=== PATIENT | male | born 1995 | race Caucasian/White ===

== ENCOUNTER 2021-11-03 23:48 | Emergency (ER) | payer OTHER ==
[~2021-11-03] VITALS: Ht 193 cm; Wt 77.1 kg
[2021-11-04] MEDS ORDERED: CYCL10 PO (00:38)
[2021-11-04] MEDS ORDERED: LIDO700A20 TOP (00:38)
[2021-11-04] MEDS ORDERED: IBUP600 PO (00:38)
[2021-11-04] MEDS ORDERED: ACET500 PO (00:38)
== END 2021-11-04 00:56 | disposition home or self-care (01) ==
LOC: ER 23:48
DX: M54.50 Low back pain, unspecified (principal); M54.6 Pain in thoracic spine; F17.200 Nicotine dependence, unspecified, uncomplicated
CPT/HCPCS: 96372; 99283; A9270; J1885

== ENCOUNTER 2021-11-08 14:32 | Emergency (ER) | payer OTHER ==
[~2021-11-08] VITALS: Ht 193 cm; Wt 77.1 kg
[~2021-11-08 14:32] MED LIST: ACET500 PO; CYCL10 PO; IBUP600 PO; LIDO700A20 TOP
[2021-11-08] MEDS ORDERED: CYCL10 PO (15:53)
[2021-11-08] MEDS ORDERED: IBUP400 PO (15:53)
== END 2021-11-08 16:29 | disposition home or self-care (01) ==
LOC: ER 14:32
DX: M54.50 Low back pain, unspecified (principal); G89.29 Other chronic pain
CPT/HCPCS: 72100; 96374; 99284-25; J1885

== ENCOUNTER 2022-04-07 11:09 | Emergency (ER) | payer OTHER ==
[~2022-04-07] VITALS: Ht 188 cm; Wt 77.1 kg
[~2022-04-07 11:09] MED LIST changes: +IBUP400 PO
[2022-04-07 11:41] LABS: BASOPHILS PERCENT AUTO 1 % (0-2); EOSINOPHILS ABSOLUTE AUTO 0.06 K/mm3 (0.00-0.68); EOSINOPHILS PERCENT AUTO 1 % (0-6); Hematocrit 44.3 % (37.0-53.0); Hemoglobin 15.7 g/dL (13.5-17.5); IMMATURE GRAN ABSOLUTE AUTO 0.02 K/mm3 (0.00-0.10); IMMATURE GRAN PERCENT AUTO 0 % (0-1); LYMPHOCYTES ABSOLUTE AUTO 1.82 K/mm3 (0.84-5.20); LYMPHOCYTES PERCENT AUTO 23 % (21-46); MONOCYTES ABSOLUTE AUTO 0.56 K/mm3 (0.16-1.47); MONOCYTES PERCENT AUTO 7 % (4-13); Mean Corpuscular HGB 33.8 pg (26.0-34.0); Mean Corpuscular HGB Conc 35.4 g/dL (31.5-36.5); Mean Corpuscular Volume 96 fL (80-100); Mean Platelet Volume 9.4 fL (9.1-12.4); NEUTROPHILS ABSOLUTE AUTO 5.28 K/mm3 (1.96-9.15); NEUTROPHILS PERCENT AUTO 67 % (41-73); Platelet Count 361 K/mm3 (150-400); RDW Coefficient Variation 12.7 % (11.7-14.2); RDW Standard Deviation 45.1 fL (35.1-46.3); Red Blood Cell Count 4.64 M/mm3 (4.30-5.90); White Blood Cell Count 7.84 K/mm3 (4.00-11.30)
[2022-04-07 12:01] LABS: Albumin, Blood 3.5 g/dL (3.4-5.0); Albumin/Globulin Ratio 0.9 (0.8-1.8); Bilirubin, Total 0.8 mg/dL (0.1-1.0); Bun/Creatinine Ratio 12.8 (12.0-20.0); Calcium, Blood 9.4 mg/dL (8.5-10.1); Creatinine, Blood 0.7 mg/dL (0.60-1.20); Globulin, Blood 3.8 g/dL (2.2-4.0); Potassium, Blood 3.6 mmol/L (3.5-5.5); Total Protein, Blood 7.3 g/dL (6.4-8.2)
[2022-04-07] MEDS ORDERED: OMEP20ER PO (13:45)
[2022-04-07] MEDS ORDERED: CHLO25 PO (13:45)
[2022-04-07] MEDS ORDERED: PROM25 PO (13:45)
== END 2022-04-07 13:57 | disposition home or self-care (01) ==
LOC: ER 11:09
PROVIDERS: Physician Assistant
DX: K29.20 Alcoholic gastritis without bleeding (principal); F10.10 Alcohol abuse, uncomplicated; F17.200 Nicotine dependence, unspecified, uncomplicated; Z88.5 Allergy status to narcotic agent; Z79.899 Other long term (current) drug therapy
CPT/HCPCS: 36415; 80053; 83690; 83735; 85025; 96374; 96375; 99284-25; A9270; C9113; J2060; J2405; J2550; J7030

== ENCOUNTER 2022-10-04 15:20 | Emergency (ER) | payer OTHER ==
[~2022-10-04] VITALS: Ht 193 cm; Wt 72.6 kg
[~2022-10-04 15:20] MED LIST changes: +CEPH500 PO; +CHLO25 PO; +OMEP20ER PO; +ONDA4ODT MM; +PROM25 PO
[2022-10-04 15:47] LABS: BASOPHILS ABSOLUTE AUTO 0.11 K/mm3 (0.00-0.23); BASOPHILS PERCENT AUTO 1 % (0-2); EOSINOPHILS PERCENT AUTO 0 % (0-6); Hematocrit 40.3 % (37.0-53.0); Hemoglobin 14.3 g/dL (13.5-17.5); IMMATURE GRAN ABSOLUTE AUTO 0.06 K/mm3 (0.00-0.10); IMMATURE GRAN PERCENT AUTO 0 % (0-1); LYMPHOCYTES ABSOLUTE AUTO 0.74 K/mm3 (0.84-5.20); LYMPHOCYTES PERCENT AUTO 4 % (21-46); MONOCYTES ABSOLUTE AUTO 0.57 K/mm3 (0.16-1.47); MONOCYTES PERCENT AUTO 3 % (4-13); Mean Corpuscular HGB 34.5 pg (26.0-34.0); Mean Corpuscular HGB Conc 35.5 g/dL (31.5-36.5); Mean Corpuscular Volume 97 fL (80-100); Mean Platelet Volume 10.1 fL (9.1-12.4); NEUTROPHILS ABSOLUTE AUTO 15.21 K/mm3 (1.96-9.15); NEUTROPHILS PERCENT AUTO 91 % (41-73); Platelet Count 433 K/mm3 (150-400); RDW Coefficient Variation 12.2 % (11.7-14.2); RDW Standard Deviation 44.2 fL (35.1-46.3); Red Blood Cell Count 4.15 M/mm3 (4.30-5.90); White Blood Cell Count 16.69 K/mm3 (4.00-11.30)
[2022-10-04] MEDS ORDERED: ONDA4ODT MM (15:49)
[2022-10-04] MEDS ORDERED: OMEP20ER PO (15:49)
[2022-10-04] MEDS ORDERED: Chlordiazepoxid25 MG PO (15:49)
[2022-10-04 16:11] LABS: Albumin, Blood 3.3 g/dL (3.4-5.0); Albumin/Globulin Ratio 0.9 (0.8-1.8); Bun/Creatinine Ratio 7.8 (12.0-20.0); Calcium, Blood 9.1 mg/dL (8.5-10.1); Creatinine, Blood 0.64 mg/dL (0.60-1.20); Globulin, Blood 3.5 g/dL (2.2-4.0); Potassium, Blood 3.9 mmol/L (3.5-5.5); Total Protein, Blood 6.8 g/dL (6.4-8.2)
[2022-10-04] MEDS ORDERED: CHLO25 PO (18:15)
== END 2022-10-04 19:01 | disposition home or self-care (01) ==
LOC: ER 15:20
PROVIDERS: Emergency Medicine
DX: F10.239 Alcohol dependence with withdrawal, unspecified (principal); F17.210 Nicotine dependence, cigarettes, uncomplicated; Z88.5 Allergy status to narcotic agent; Z79.899 Other long term (current) drug therapy
CPT/HCPCS: 80053; 85025; 93005; 93010; A9270; G0480; J2405; J7030

== ENCOUNTER 2022-11-19 16:30 | Emergency (ER) | payer OTHER ==
[~2022-11-19] VITALS: Ht 193 cm; Wt 81.7 kg
[~2022-11-19 16:30] MED LIST changes: +Chlordiazepoxid25 MG PO
[2022-11-19] MEDS ORDERED: Amoxicillin500 MG PO (16:40)
[2022-11-19] MEDS ORDERED: Norco 5-325 Ta1 EACH PO (16:41)
== END 2022-11-19 16:44 | disposition home or self-care (01) ==
LOC: ER 16:30
DX: K04.7 Periapical abscess without sinus (principal); F17.210 Nicotine dependence, cigarettes, uncomplicated; Z88.5 Allergy status to narcotic agent; Z79.899 Other long term (current) drug therapy
CPT/HCPCS: 99282

== ENCOUNTER 2023-03-17 11:30 | Emergency (ER) | payer OTHER ==
[~2023-03-17] VITALS: Ht 193 cm; Wt 90.7 kg
[~2023-03-17 11:30] MED LIST changes: +Amoxicillin500 MG PO; +Norco 5-325 Ta1 EACH PO
[2023-03-17 11:58] VITALS: BP 116/83
== END 2023-03-17 13:25 | disposition home or self-care (01) ==
LOC: ER 11:30
DX: Z77.098 Contact with and (suspected) exposure to other hazardous, chiefly nonmedicinal, chemicals (principal); Z88.5 Allergy status to narcotic agent; Z79.899 Other long term (current) drug therapy; F17.210 Nicotine dependence, cigarettes, uncomplicated
CPT/HCPCS: 99283; A9270

== ENCOUNTER 2023-08-01 14:25 | Inpatient (IN) | payer OTHER ==
[~2023-08-01] VITALS: Ht 193 cm; Wt 73.5 kg
[2023-08-01 15:20] LABS: BASOPHILS PERCENT AUTO 1 % (0-2); EOSINOPHILS ABSOLUTE AUTO 0.01 K/mm3 (0.00-0.68); EOSINOPHILS PERCENT AUTO 0 % (0-6); Hematocrit 42.9 % (37.0-53.0); Hemoglobin 15.7 g/dL (13.5-17.5); IMMATURE GRAN ABSOLUTE AUTO 0.04 K/mm3 (0.00-0.10); IMMATURE GRAN PERCENT AUTO 0 % (0-1); LYMPHOCYTES ABSOLUTE AUTO 1.29 K/mm3 (0.84-5.20); LYMPHOCYTES PERCENT AUTO 9 % (21-46); MONOCYTES ABSOLUTE AUTO 0.82 K/mm3 (0.16-1.47); MONOCYTES PERCENT AUTO 6 % (4-13); Mean Corpuscular HGB 33.5 pg (26.0-34.0); Mean Corpuscular HGB Conc 36.6 g/dL (31.5-36.5); Mean Corpuscular Volume 92 fL (80-100); NEUTROPHILS PERCENT AUTO 84 % (41-73); Platelet Count 245 K/mm3 (150-400); RDW Coefficient Variation 12.7 % (11.7-14.2); RDW Standard Deviation 42.5 fL (35.1-46.3); Red Blood Cell Count 4.68 M/mm3 (4.30-5.90); White Blood Cell Count 13.96 K/mm3 (4.00-11.30)
[2023-08-01 15:40] LABS: Albumin, Blood 4.4 g/dL (3.4-5.0); Albumin/Globulin Ratio 1.2 (0.8-1.8); Bilirubin, Total 1.2 mg/dL (0.1-1.0); Bun/Creatinine Ratio 7.8 (12.0-20.0); Calcium, Blood 10.1 mg/dL (8.5-10.1); Creatinine, Blood 0.64 mg/dL (0.60-1.20); Globulin, Blood 3.7 g/dL (2.2-4.0); Potassium, Blood 3.2 mmol/L (3.5-5.5); Total Protein, Blood 8.1 g/dL (6.4-8.2)
[2023-08-01 20:21] VITALS: BP 151/109
[2023-08-02 02:39] VITALS: BP 152/107
--- NOTE | 2023-08-02 04:39 | NUR ---
SHIFT SUMMARY PATIENT IS ALERT AND ORIENTED. PATIENT HAS HAD NO ACUTE EVENTS THIS SHIFT. PATIENT IS ADMITTED FOR ETOH WITHDRAWAL. CIWAS HAVE BEEN UNDER 8 AND MEDICATED PER EMAR. PATIENT IS A 1X PERSON ASSIST DUE TO SHAKINESS AND WITHDRAWALS. PATIENT HAS INDICATED NO COMPLAINTS OF PAIN, NAUSEA, SOB OR VOMITTING THIS SHIFT. MOTHER HAS STAYED OVERNIGHT WITH PATIENT. BED IN LOCKED AND LOWEST POSITION. CALL LIGHT IN PLACE. WILL MONITOR UNTIL SHIFT CHANGE.
[2023-08-02 05:10] LABS: BASOPHILS ABSOLUTE AUTO 0.05 K/mm3 (0.00-0.23); BASOPHILS PERCENT AUTO 1 % (0-2); EOSINOPHILS ABSOLUTE AUTO 0.01 K/mm3 (0.00-0.68); EOSINOPHILS PERCENT AUTO 0 % (0-6); Hematocrit 37.7 % (37.0-53.0); Hemoglobin 13.3 g/dL (13.5-17.5); IMMATURE GRAN ABSOLUTE AUTO 0.01 K/mm3 (0.00-0.10); IMMATURE GRAN PERCENT AUTO 0 % (0-1); LYMPHOCYTES ABSOLUTE AUTO 1.32 K/mm3 (0.84-5.20); LYMPHOCYTES PERCENT AUTO 22 % (21-46); MONOCYTES ABSOLUTE AUTO 0.59 K/mm3 (0.16-1.47); MONOCYTES PERCENT AUTO 10 % (4-13); Mean Corpuscular HGB 33.7 pg (26.0-34.0); Mean Corpuscular HGB Conc 35.3 g/dL (31.5-36.5); Mean Corpuscular Volume 95 fL (80-100); Mean Platelet Volume 10.6 fL (9.1-12.4); NEUTROPHILS ABSOLUTE AUTO 4.15 K/mm3 (1.96-9.15); NEUTROPHILS PERCENT AUTO 68 % (41-73); Platelet Count 179 K/mm3 (150-400); RDW Coefficient Variation 12.5 % (11.7-14.2); RDW Standard Deviation 43.7 fL (35.1-46.3); Red Blood Cell Count 3.95 M/mm3 (4.30-5.90); White Blood Cell Count 6.13 K/mm3 (4.00-11.30)
[2023-08-02 05:35] LABS: Bun/Creatinine Ratio 7.1 (12.0-20.0); Calcium, Blood 8.4 mg/dL (8.5-10.1); Creatinine, Blood 0.71 mg/dL (0.60-1.20); Magnesium, Blood 1.2 mg/dL (1.6-2.4); Potassium, Blood 3.2 mmol/L (3.5-5.5)
[2023-08-02 07:37] VITALS: BP 145/102
[2023-08-02 16:04] VITALS: BP 148/106
--- NOTE | 2023-08-02 18:40 | NUR ---
SHIFT SUMMARY- PT IS A/O, PLESANT AND COOPERATIVE. HE IS EATING AND DRINKING WELL. HIS MOM AND S/O HAVE BEEN AT THE BEDSIDE THIS SHIFT. WITHDRAWLS ARE STABLE. RECIEVED ONE DOSE OF ATIVAN. PT IS ANXIOUS ABOUT WANTING TO GO SMOKE. EDUCATED ON HOSPITAL POLICY. HE IS AMBULATING TO THE RESTROOM. HIS BED IS IN THE LOW POSITON AND CALL LIGHT IS WITIN REACH.
[2023-08-02 19:25] VITALS: BP 146/102
--- NOTE | 2023-08-03 03:52 | NUR ---
AMA SUMMARY PATIENT IS ALERT AND ORIENTED. PATIENT HAS BEEN WITHDRAWING FROM ETOH. PATIENT SCORED A 13 ON CIWA. PATIENT WOKE UP FROM SLEEPING AND HALLUCINATING. PATIENT WAS GIVEN ATIVAN AND LIBRIUM. NEW IV WAS ATTEMPTED MULTIPLE TIMES. PATIENT BECAME IRRITATED WITH IV INSERTION. PATIENT LEFT AMA. DR HODGE WAS NOTIFIED. CHARGE IS AWARE. PATIENTS FAMILY IS AWARE.
--- NOTE | 2023-08-03 03:55 | NUR ---
ATTEMPTED TO START NEW IV WITH US X 2, UNSUCESSFUL. PT WAS VERY POLITE BUT APPEARED VERY ANXIOUS VS OR COMBINED WITH WITHDRAWALS, BUT REFUSED ANY FURTHER ATTEMPTS. PT'S PRIMARY RN EXPLAINED WHAT THE PLAN OF CARE WAS FOR HIS WITHDRAWALS AND THE NEED FOR THE IV,HOWEVER PT POLITELY DECLINED AND WANTED TO GO HOME. PRIMARY RN EDUCATED PT OF THE RISKS OF LEAVING WITHOUT THE PROPER TREATMENT. PT STILL WANTED TO LEAVE. PRIMARY RN LET THE DR KNOW. WILL LET THE SUSPECT ARTIST SUPERVISOR KNOW.
== END 2023-08-03 03:50 | disposition left against medical advice (07) | DRG 894 ==
LOC: ER 14:25 → MEDS 18:28
PROVIDERS: Physician Assistant; ADMIT Hospitalist
PROC: HZ2ZZZZ Detoxification Services for Substance Abuse Treatment (ICD-10-PCS; principal; 2023-08-02)
DX: F10.239 Alcohol dependence with withdrawal, unspecified (principal); R00.0 Tachycardia, unspecified; F10.229 Alcohol dependence with intoxication, unspecified; D72.829 Elevated white blood cell count, unspecified; E87.6 Hypokalemia; R74.01 Elevation of levels of liver transaminase levels; E80.7 Disorder of bilirubin metabolism, unspecified; R61 Generalized hyperhidrosis; F17.210 Nicotine dependence, cigarettes, uncomplicated; F32.A Depression, unspecified; E83.40 Disorders of magnesium metabolism, unspecified; R19.5 Other fecal abnormalities; Z79.899 Other long term (current) drug therapy; Z88.5 Allergy status to narcotic agent; Y90.3 Blood alcohol level of 60-79 mg/100 ml; Z98.890 Other specified postprocedural states; Z53.29 Procedure and treatment not carried out because of patient's decision for other reasons
CPT/HCPCS: 36415; 80048; 80053; 82272; 83690; 83735; 85025; 96361; 96374; 96375; 99285-25; A9270; G0480; J1885; J2060; J2405; J3411; J3475; J7030